=== PATIENT | male | born 1980 | race Caucasian/White ===

== ENCOUNTER 2017-06-09 18:45 | Inpatient (IN) | payer OTHER ==
[2017-06-09 19:02] VITALS: BMI 22.2
--- NOTE | 2017-06-09 19:15 | HP ---
CIWA Score - CIWA Score Nausea/Vomitin-Mild Nausea/No Vomiting Muscle Tremors: 4-Moderate,w/Arms Extend Anxiety: 4-Mod. Anxious/Guarded Agitation: 4-Moderately Restless Paroxysmal Sweats: 1-Minimal Palms Moist Orientation: 1-Uncertain about Date Tacttile Disturbances: 0-None Auditory Disturbances: 0-None Visual Disturbances: 0-None Headache: 1-Very Mild CIWA-Ar Total Score: 16 Admission ROS [facility] - HPI Chief Complaint: WITHDRAWAL SX Allergies/Adverse Reactions: Allergies Allergy/AdvReac Type Severity Reaction Status Date / Time Penicillins Allergy Severe Itching Verified 06/09/17 19:08 History of Present Illness: 36 YEARS OLD MALE WITH LONG HISTORY OF ALCOHOL NICOTINE DEPENDENCE, HAS HEPATOMEGALY AND HEPATIC STEATOSIS TREATED AT [facility] X 1 DAY, DISCHARGED TO [facility] FOR ALCOHOL DETOX, LATEST DETOX WAS IN [place] X 6 DAYS ABOUT A MONTH AGO. REPORTS HAS DEPRESSION IS ADMITTED TO DETOX Exam Limitations: No Limitations - Ebola screening Have you traveled outside of the country in the last 21 days: No Have you had contact with anyone from an Ebola affected area: No Have you been sick,other than usual withdrawal symptoms: No Do you have a fever: No - Review of Systems Constitutional: Loss of Appetite, Changes in sleep, Unintentional Wgt. Loss, Unexplained wgt Loss EENT: reports: Dental Problems (MULTIPLE TEETH MISSING) Respiratory: reports: SOB with Exertion Cardiac: reports: No Symptoms Reported GI: reports: Nausea, Poor Appetite, Poor Fluid Intake, Abdominal cramping : reports: No Symptoms Reported Musculoskeletal: reports: Back Pain, Joint Pain, Muscle Pain, Neck Pain Integumentary: reports: No Symptoms Reported Neuro: reports: Tremors Endocrine: reports: No Symptoms Reported Hematology: reports: No Symptoms Reported Psychiatric: reports: Judgement Intact, Anxious, Depressed Other Systems: Reviewed and Negative Patient History - Patient Medical History Hx Anemia: No Hx Asthma: No Hx Chronic Obstructive Pulmonary Disease (COPD): Yes Hx Cancer: No Hx Cardiac Disorders: No Hx Congestive Heart Failure: No Hx Hypertension: No Hx Hypercholesterolemia: No Hx Pacemaker: No HX Cerebrovascular Accident: No Hx Seizures: No Hx Dementia: No Hx Diabetes: No Hx Gastrointestinal Disorders: No Hx Liver Disease: Yes Hx Genitourinary Disorders: No Hx Sexually Transmitted Disorders: No Hx Renal Disease (ESRD): No Hx Thyroid Disease: No Hx Human Immunodeficiency Virus (HIV): No Hx Hepatitis C: No Hx Depression: Yes Hx Suicide Attempt: No Hx Bipolar Disorder: No Hx Schizophrenia: No - Patient Surgical History Past Surgical History: Yes Hx Neurologic Surgery: No Hx Cataract Extraction: No Hx Cardiac Surgery: No Hx Lung Surgery: No Hx Breast Surgery: No Hx Breast Biopsy: No Hx Abdominal Surgery: Yes (LEFT INGUINAL HERNIA REPAIRED 2012) Hx Appendectomy: No Hx Cholecystectomy: No Hx Genitourinary Surgery: No Hx Orthopedic Surgery: No Anesthesia Reaction: No - PPD History Previous Implant?: Yes Documented Results: Negative w/o proof Implanted On Prior [facility] Admission?: No PPD to be Administered?: Yes - Smoking Cessation Smoking history: Current every day smoker Have you smoked in the past 12 months: Yes Aproximately how many cigarettes per day: 20 Cigars Per Day: 0 Hx Chewing Tobacco Use: No Initiated information on smoking cessation: Yes 'Breaking Loose' booklet given: 06/09/17 - Substance & Tx. History Hx Alcohol Use: Yes Hx Substance Use: No Substance Use Type: Alcohol Hx Substance Use Treatment: Yes (03/2017) - Substances Abused Alcohol Route: Oral Frequency: Daily Amount used: [id number], 2 PINTS VOLKA Age of first use: 16 Date of Last Use: 06/07/17 Family Disease History - Family Disease History Family Disease History: Heart Disease: Father (), Other: Father Admission Physical Exam BHS - Vital Signs Vital Signs: Vital Signs - 24 hr 06/09/17 18:58 Temperature 98.5 F Pulse Rate 110 H Respiratory 18 Rate Blood Pressure 112/77 - Physical General Appearance: Yes: Appropriately Dressed, Moderate Distress, Thin, Tremorous, Irritable, Sweating, Anxious HEENTM: Yes: Hearing grossly Normal, Normal ENT Inspection, Normocephalic, Normal Voice Respiratory: Yes: Chest Non-Tender, No Respiratory Distress, No Accessory Muscle Use, Rhonchi (LEFT) Neck: Yes: Supple, Trachea in good position Breast: Yes: Breasts Symetrical Cardiology: Yes: Regular Rhythm, S1, S2, Tachycardia Abdominal: Yes: Non Tender, Soft, Increased Bowel Sounds Genitourinary: Yes: Within Normal Limits Back: Yes: Normal Inspection Musculoskeletal: Yes: full range of Motion, Gait Steady, Muscle Pain (SHOULDERS) Extremities: Yes: Normal Range of Motion, Non-Tender, Tremors, Other (IV DELFINO ON LEFT ARM FROM [facility]) Neurological: Yes: Alert, Motor Strength 5/5, Normal Response, Depressed Affect Integumentary: Yes: Warm Lymphatic: Yes: Within Normal Limits - Diagnostic (1) Alcohol dependence with uncomplicated withdrawal Current Visit: Yes Status: Acute (2) COPD (chronic obstructive pulmonary disease) Current Visit: Yes Status: Chronic Qualifiers: COPD type: emphysema Emphysema type: unilateral Qualified Code(s ): J43.0 - Unilateral pulmonary emphysema [MacLeod's syndrome] (3) Hepatomegaly Current Visit: Yes Status: Chronic (4) Hepatic steatosis Current Visit: Yes Status: Resolved Comment: TREATED AT [facility] RELEASED TODAY TO [facility] FOR ALCOHOL DETOX Cleared for Admission [facility] - Detox or Rehab [facility] Level of Care: Medically Managed Detox Regimen/Protocol: Librium [facility] Breath Alcohol Content Breath Alcohol Content: 0 Urine Drug Screen - Results Drug Screen Negative: No Urine Drug Screen Results: BZO-Benzodiazepines
[2017-06-09] MEDS ORDERED: MAGNESIUM CITRATE 300 ML BOTTLE PO PRN (19:31)
[2017-06-09] MEDS ORDERED: LOPERAMIDE HCL 2 MG CAPSULE PO PRN (19:31)
[2017-06-09] MEDS ORDERED: MENTHOL/PHENOL 1 EACH UD MM PRN (19:31)
[2017-06-09] MEDS ORDERED: P-EPHED 60MG/TRIPROLIDI 2.5MG TABLET PO PRN (19:31)
[2017-06-09] MEDS ORDERED: MAGNESIUM HYDROX 2400MG/30ML ORAL SUSPENSION 30 ML CUP PO PRN (19:31)
[2017-06-09] MEDS ORDERED: chlordiazePOXIDE HCL 25 MG CAPSULE PO PRN (19:31)
[2017-06-09] MEDS ORDERED: chlordiazePOXIDE HCL 25 MG CAPSULE PO ONE (19:31)
[2017-06-09] MEDS ORDERED: MAG HYDROX/AL HYDROX/SIMETH 30 ML UNIT-DOSE CUP PO PRN (19:31)
[2017-06-09] MEDS ORDERED: ALBUTEROL SO4 6.7 GM HFA INHALER IH PRN (19:33)
[2017-06-09] MEDS: ACETAMINOPHEN 325 MG TABLET (FP) PO PRN (20:07)
[2017-06-09] MEDS: guaiFENesin/D-METHORPHAN HB 10 ML UNIT-DOSE CUPS PO PRN (20:08)
[2017-06-09 20:16] LABS: URINE APPEARANCE CLEAR; URINE BILIRUBIN NEGATIVE (NEGATIVE); URINE BLOOD NEGATIVE (NEGATIVE); URINE COLOR YELLOW; URINE GLUCOSE (UA) NEGATIVE (NEGATIVE); URINE KETONE NEGATIVE (NEGATIVE); URINE LEUK ESTERASE NEGATIVE (NEGATIVE); URINE NITRITE NEGATIVE (NEGATIVE); URINE PROTEIN NEGATIVE (NEGATIVE); URINE UROBILINOGEN NEGATIVE mg/dL (0.2-1.0)
[2017-06-09] MEDS: chlordiazePOXIDE HCL 25 MG CAPSULE PO SCH (23:04)
[2017-06-09] MEDS: THIAMINE HCL 100 MG TABLET (FP) PO SCH (23:05)
[2017-06-10] MEDS: chlordiazePOXIDE HCL 25 MG CAPSULE PO SCH ×4 (05:17→22:25)
[2017-06-10] MEDS: ACETAMINOPHEN 325 MG TABLET (FP) PO PRN (05:18)
[2017-06-10] MEDS: guaiFENesin/D-METHORPHAN HB 10 ML UNIT-DOSE CUPS PO PRN ×2 (05:20→22:25)
[2017-06-10 09:43] LABS: MCH 31.8 pg (25.7-33.7); MCHC 32.7 g/dl (32.0-35.9); MEAN CELL VOLUME 97.3 fl (80-96); MEAN PLT VOLUME 8.9 fl (7.5-11.1); PLATELET COUNT 272 K/MM3 (134-434); RDW 17.7 % (11.9-15.9); WHITE BLOOD COUNT 13.4 K/mm3 (4.0-10.0)
[2017-06-10 09:51] LABS: ALBUMIN 1.9 g/dl (3.4-5.0); ANION GAP 8 (8-16); CO2 26 mmol/L (21-32); GLUCOSE,RANDOM 100 mg/dL (74-106)
[2017-06-10 09:56] LABS: ALK PHOS 314 U/L (45-117); CALCIUM 8.3 mg/dL (8.5-10.1); CREATININE 0.6 mg/dL (0.7-1.3); SGOT/AST 346 U/L (15-37); SGPT/ALT 155 U/L (12-78); TOT PROT 5.6 g/dl (6.4-8.2)
[2017-06-10] MEDS: PRENATAL VITAMINS W/ FOLIC ACID TABLET (FP) PO SCH (10:24)
[2017-06-10] MEDS: NICOTINE 21 MG/24 HOURS TOPICAL PATCH TD SCH (10:25)
[2017-06-10] MEDS: hydrOXYzine PAMOATE 50 MG CAPSULE (FP) PO PRN (10:26)
--- NOTE | 2017-06-10 11:35 | PN ---
S CIWA - CIWA Score Nausea/Vomitin-No Nausea/No Vomiting Muscle Tremors: 4-Moderate,w/Arms Extend Anxiety: 3 Agitation: 4-Moderately Restless Paroxysmal Sweats: 3 Orientation: 0-Oriented Tacttile Disturbances: 0-None Auditory Disturbances: 0-None Visual Disturbances: 0-None Headache: 0-None Present CIWA-Ar Total Score: 14 BHS Progress Note (SOAP) Subjective: sweats irritable agitation interrupted sleep body aches Objective: 06/10/17 11:33 Vital Signs Temperature 97.9 F 06/10/17 10:35 Pulse Rate 129 H 06/10/17 10:35 Respiratory Rate 18 06/10/17 10:35 Blood Pressure 112/67 06/10/17 10:35 O2 Sat by Pulse Oximetry (%) Laboratory Tests 06/09/17 06/10/17 06/10/17 20:02 08:00 08:00 WBC 13.4 H RBC 3.84 L Hgb 12.2 Hct 37.3 MCV 97.3 H MCH 31.8 MCHC 32.7 RDW 17.7 H Plt Count 272 MPV 8.9 Sodium 141 Potassium 4.6 Chloride 107 Carbon Dioxide 26 Anion Gap 8 BUN 8 Creatinine 0.6 L Creat Clearance w eGFR > 60 Random Glucose 100 Calcium 8.3 L Total Bilirubin 3.0 H AST 346 H ALT 155 H Alkaline Phosphatase 314 H Total Protein 5.6 L Albumin 1.9 L Urine Color Yellow Urine Appearance Clear Urine pH 8.0 Ur Specific [place] 1.015 Urine Protein Negative Urine Glucose (UA) Negative Urine Ketones Negative Urine Blood Negative Urine Nitrite Negative Urine Bilirubin Negative Urine Urobilinogen Negative Ur Leukocyte Esterase Negative elevated ast/alt; tylenol d/c labs repeated awake/alert ambulating no acute distress Assessment: 06/10/17 11:34 withdrawal sx Plan: continue detox increase fluids clonidinen 0.1mg x one
[2017-06-10] MEDS ORDERED: cloNIDine HCL 0.1 MG TABLET PO ONE (12:30)
--- NOTE | 2017-06-10 12:55 | EKG ---
Test Reason : Blood Pressure : / mmHG Vent. Rate : 107 BPM Atrial Rate : 107 BPM P-R Int : 130 ms QRS Dur : 086 ms QT Int : 346 ms P-R-T Axes : 066 071 044 degrees QTc Int : 461 ms SINUS TACHYCARDIA OTHERWISE NORMAL ECG NO PREVIOUS ECGS AVAILABLE Confirmed by MD OMAIRA, YING ([id number]) on 06/10/2017 12:55:18 PM Referred By: Confirmed By:YING CASTANO MD
--- NOTE | 2017-06-10 16:09 | CONSULT ---
[facility] Psychiatric Consult - Data Date of interview: 06/10/17 Admission source: [facility] Identifying data: First admission to [facility] for this 36 y/o male seeking detox treatment on for alcohol dependence.Patient is single,a father of two,homeless,unemployed and supported on food stamps. Substance Abuse History: Confirmed by patient in this interview. Smoking Cessation. Smoking history: Current every day smoker. Have you smoked in the past 12 months: Yes. Aproximately how many cigarettes per day: 20. Cigars Per Day: 0. Hx Chewing Tobacco Use: No. Initiated information on smoking cessation : Yes. 'Breaking Loose' booklet given: 06/09/17. - Substance & Tx. History. Hx Alcohol Use: Yes. Hx Substance Use: No. Substance Use Type: Alcohol. Hx Substance Use Treatment: Yes (03/2017). - Substances Abused. Alcohol. Route : Oral. Frequency: Daily. Amount used: [id number], 2 PINTS VOLKA. Age of first use: 16. Date of Last Use: 06/07/17 Medical History: Noted report of COPD,hepatic steatosis and a history of left inguinal herniorraphy (2012). Psychiatric History: Patient denies. Physical/Sexual Abuse/Trauma History: Patient denies. Additional Comment: Urine Drug Screen Results: BZO-Benzodiazepines.Noted. Mental Status Exam - Mental Status Exam Alert and Oriented to: Time, Place, Person Cognitive Function: Good Patient Appearance: Well Groomed Mood: Hopeful, Euthymic Affect: Appropriate, Normal Range Patient Behavior: Appropriate, Cooperative Speech Pattern: Clear (bilingual) Voice Loudness: Normal Thought Process: Intact, Goal Oriented Thought Disorder: Not Present Hallucinations: Denies Suicidal Ideation: Denies Homicidal Ideation: Denies Insight/Judgement: Poor Sleep: Poorly, Difficulty falling asleep Appetite: Good Muscle strength/Tone: Normal Gait/Station: Normal Psychiatric Findings - Problem List ([place] 1, 2,3) (1) Alcohol dependence with uncomplicated withdrawal Current Visit: Yes Status: Acute (2) Nicotine dependence Current Visit: Yes Status: Acute (3) COPD (chronic obstructive pulmonary disease) Current Visit: Yes Status: Chronic Qualifiers: COPD type: emphysema Emphysema type: unilateral Qualified Code(s ): J43.0 - Unilateral pulmonary emphysema [MacLeod's syndrome] (4) Hepatomegaly Current Visit: Yes Status: Chronic (5) Hepatic steatosis Current Visit: Yes Status: Resolved Comment: TREATED AT [facility] RELEASED TODAY TO [facility] FOR ALCOHOL DETOX (6) Insomnia Current Visit: Yes Status: Acute - Initial Treatment Plan Initial Treatment Plan: Psychoeducation done in this session.Detoxification.Ambien 10 mg po hs prn (for insomnia).Sleep hygiene principles are also discussed with the patient.[facility].Mr Fox expresses agreement with this careplan.Observation.
[2017-06-10] MEDS: THIAMINE HCL 100 MG TABLET (FP) PO SCH (22:24)
[2017-06-10] MEDS: diphenhydrAMINE HCL 50 MG CAPSULE PO PRN (22:25)
[2017-06-11] MEDS: guaiFENesin/D-METHORPHAN HB 10 ML UNIT-DOSE CUPS PO PRN ×2 (05:46→17:26)
[2017-06-11] MEDS: chlordiazePOXIDE HCL 25 MG CAPSULE PO SCH ×3 (05:46→17:24)
[2017-06-11] MEDS: PRENATAL VITAMINS W/ FOLIC ACID TABLET (FP) PO SCH (10:43)
[2017-06-11] MEDS: NICOTINE 21 MG/24 HOURS TOPICAL PATCH TD SCH (10:44)
[2017-06-11 10:50] LABS: MCHC 32.4 g/dl (32.0-35.9); MEAN CELL VOLUME 98.9 fl (80-96); MEAN PLT VOLUME 8.7 fl (7.5-11.1); PLATELET COUNT 273 K/MM3 (134-434)
[2017-06-11 10:58] LABS: ALBUMIN 1.8 g/dl (3.4-5.0); ALK PHOS 231 U/L (45-117); ANION GAP 6 (8-16); BILIRUBIN,TOTAL 1.6 mg/dL (0.2-1.0); CALCIUM 7.9 mg/dL (8.5-10.1); CO2 28 mmol/L (21-32); CREATININE 0.7 mg/dL (0.7-1.3); GLUCOSE,RANDOM 103 mg/dL (74-106); SGOT/AST 238 U/L (15-37); SGPT/ALT 124 U/L (12-78); TOT PROT 4.8 g/dl (6.4-8.2)
[2017-06-11] MEDS: hydrOXYzine PAMOATE 50 MG CAPSULE (FP) PO PRN (13:28)
[2017-06-11 13:43] LABS: PLATELET COMMENT2 NO CLOTTING DETECTED; PLATELET ESTIMATE ADEQUATE (NORMAL); TOTAL CELLS COUNTED 100
[2017-06-11 13:44] LABS: METAMYELOCYTE 3 % (0-2); NUCLEATED RED BLOOD CELL 1 % (0-0); SMUDGE CELLS FEW
--- NOTE | 2017-06-11 15:18 | PN ---
S CIWA - CIWA Score Nausea/Vomitin Muscle Tremors: 3 Anxiety: 3 Agitation: 2 Paroxysmal Sweats: 1-Minimal Palms Moist Orientation: 0-Oriented Tacttile Disturbances: 1-Very Mild Itch/Numbness Auditory Disturbances: 1-Very Mild Visual Disturbances: 1-Very Mild Sensitivity Headache: 2-Mild CIWA-Ar Total Score: 17 BHS Progress Note (SOAP) Subjective: ALERT IRRITABLE,ANXIOUS,INTERRUPTED SLEEP,TREMOR Objective: 06/11/17 15:16 Vital Signs Temperature 98.2 F 06/11/17 14:56 Pulse Rate 114 H 06/11/17 14:56 Respiratory Rate 18 06/11/17 14:56 Blood Pressure 125/59 06/11/17 14:56 O2 Sat by Pulse Oximetry (%) Laboratory Last Values WBC 15.0 K/mm3 (4.0-10.0) H 06/11/17 07:50 RBC 3.40 M/mm3 (4.00-5.60) L 06/11/17 07:50 Hgb 10.9 GM/dL (11.7-16.9) L D 06/11/17 07:50 Hct 33.6 % (35.4-49) L 06/11/17 07:50 MCV 98.9 fl (80-96) H 06/11/17 07:50 MCH 32.0 pg (25.7-33.7) 06/11/17 07:50 MCHC 32.4 g/dl (32.0-35.9) 06/11/17 07:50 RDW 18.0 % (11.9-15.9) H 06/11/17 07:50 Plt Count 273 K/MM3 (134-434) 06/11/17 07:50 MPV 8.7 fl (7.5-11.1) 06/11/17 07:50 Total Counted 100 06/11/17 07:50 Neutrophils % Y 06/11/17 07:50 Neutrophils % (Manual) 75 % (42.8-82.8) 06/11/17 07:50 Band Neuts % (Manual) 6 % (0-10) 06/11/17 07:50 Lymphocytes % Y 06/11/17 07:50 Lymphocytes % (Manual) 9 % (8-40) 06/11/17 07:50 Monocytes % (Manual) 6 % (3.8-10.2) 06/11/17 07:50 Eosinophils % (Manual) 1 % (0-4.5) 06/11/17 07:50 Nucleated RBC % 1 % (0-0) H 06/11/17 07:50 Smudge Cells Few 06/11/17 07:50 Platelet Estimate Adequate (NORMAL) 06/11/17 07:50 Platelet Comment No clumping noted 06/11/17 07:50 Platelet Comment No clotting detected 06/11/17 07:50 Sodium 142 mmol/L (136-145) 06/11/17 07:50 Potassium 4.6 mmol/L (3.5-5.1) 06/11/17 07:50 Chloride 108 mmol/L (98-107) H 06/11/17 07:50 Carbon Dioxide 28 mmol/L (21-32) 06/11/17 07:50 Anion Gap 6 (8-16) L 06/11/17 07:50 BUN 10 mg/dL (7-18) D 06/11/17 07:50 Creatinine 0.7 mg/dL (0.7-1.3) 06/11/17 07:50 Creat Clearance w eGFR > 60 (>60) 06/11/17 07:50 Random Glucose 103 mg/dL (74-106) 06/11/17 07:50 Calcium 7.9 mg/dL (8.5-10.1) L 06/11/17 07:50 Total Bilirubin 1.6 mg/dL (0.2-1.0) H D 06/11/17 07:50 AST 238 U/L (15-37) H D 06/11/17 07:50 ALT 124 U/L (12-78) H 06/11/17 07:50 Alkaline Phosphatase 231 U/L (45-117) H D 06/11/17 07:50 Total Protein 4.8 g/dl (6.4-8.2) L 06/11/17 07:50 Albumin 1.8 g/dl (3.4-5.0) L 06/11/17 07:50 Urine Color Yellow 06/09/17 20:02 Urine Appearance Clear 06/09/17 20:02 Urine pH 8.0 (5.0-8.0) 06/09/17 20:02 Ur Specific [place] 1.015 (1.005-1.025) 06/09/17 20:02 Urine Protein Negative (NEGATIVE) 06/09/17 20:02 Urine Glucose (UA) Negative (NEGATIVE) 06/09/17 20:02 Urine Ketones Negative (NEGATIVE) 06/09/17 20:02 Urine Blood Negative (NEGATIVE) 06/09/17 20:02 Urine Nitrite Negative (NEGATIVE) 06/09/17 20:02 Urine Bilirubin Negative (NEGATIVE) 06/09/17 20:02 Urine Urobilinogen Negative mg/dL (0.2-1.0) 06/09/17 20:02 Ur Leukocyte Esterase Negative (NEGATIVE) 06/09/17 20:02 RPR Titer Nonreactive (NONREACTIVE) 06/10/17 08:00 Assessment: 06/11/17 15:17 WITHDRAWAL SYMPTOM Plan: CONTINUE DETOX,ENCOURAGE ORAL FLUID,CBC,CMP,INR IN AM
[2017-06-11] MEDS: CYCLOBENZAPRINE HCL 10 MG TABLET (FP) PO PRN ×2 (17:26→22:11)
[2017-06-11] MEDS: diphenhydrAMINE HCL 50 MG CAPSULE PO PRN (22:11)
[2017-06-11] MEDS: THIAMINE HCL 100 MG TABLET (FP) PO SCH (22:11)
[2017-06-11] MEDS: chlordiazePOXIDE 5 MG CAPSULE PO SCH (22:11)
[2017-06-12] MEDS: chlordiazePOXIDE 5 MG CAPSULE PO SCH ×3 (05:13→17:22)
[2017-06-12] MEDS: CYCLOBENZAPRINE HCL 10 MG TABLET (FP) PO PRN ×4 (05:16→22:16)
[2017-06-12] MEDS: guaiFENesin/D-METHORPHAN HB 10 ML UNIT-DOSE CUPS PO PRN ×2 (05:16→17:22)
[2017-06-12 10:04] LABS: MEAN PLT VOLUME 8.5 fl (7.5-11.1)
[2017-06-12 10:09] LABS: ALBUMIN 2.1 g/dl (3.4-5.0); ANION GAP 4 (8-16); CALCIUM 8.2 mg/dL (8.5-10.1); CO2 28 mmol/L (21-32); GLUCOSE,RANDOM 96 mg/dL (74-106); SGOT/AST 208 U/L (15-37); SGPT/ALT 131 U/L (12-78)
[2017-06-12 10:10] LABS: INR 0.83 (0.82-1.09); PROTHROMBIN TIME (PATIENT) 9.1 SEC (9.98-11.88)
[2017-06-12 10:11] LABS: MCH 32.2 pg (25.7-33.7); MCHC 32.3 g/dl (32.0-35.9); MEAN CELL VOLUME 99.7 fl (80-96); PLATELET COUNT 310 K/MM3 (134-434); RDW 18.4 % (11.9-15.9); WHITE BLOOD COUNT 18.3 K/mm3 (4.0-10.0)
[2017-06-12 10:11] LABS: ALK PHOS 212 U/L (45-117); BILIRUBIN,TOTAL 1.2 mg/dL (0.2-1.0); CREATININE 0.6 mg/dL (0.7-1.3); TOT PROT 5.7 g/dl (6.4-8.2)
[2017-06-12] MEDS: PRENATAL VITAMINS W/ FOLIC ACID TABLET (FP) PO SCH (10:19)
[2017-06-12] MEDS: LEVOFLOXACIN 500 MG TABLET (FP) PO SCH (10:19)
[2017-06-12] MEDS: NICOTINE 21 MG/24 HOURS TOPICAL PATCH TD SCH (10:21)
[2017-06-12] MEDS: hydrOXYzine PAMOATE 50 MG CAPSULE (FP) PO PRN (12:27)
--- NOTE | 2017-06-12 13:54 | PN ---
S Progress Note (SOAP) Subjective: ALERT,IRRITABLE,SORE THROAT,COUGHING FOR 2 OR 3 DAYS,TREMOR Objective: 06/12/17 13:50 Vital Signs Temperature 97.9 F 06/12/17 10:00 Pulse Rate 121 H 06/12/17 10:00 Respiratory Rate 18 06/12/17 10:00 Blood Pressure 109/78 06/12/17 10:00 O2 Sat by Pulse Oximetry (%) Laboratory Last Values WBC 18.3 K/mm3 (4.0-10.0) H 06/12/17 09:00 RBC 3.68 M/mm3 (4.00-5.60) L 06/12/17 09:00 Hgb 11.8 GM/dL (11.7-16.9) 06/12/17 09:00 Hct 36.7 % (35.4-49) 06/12/17 09:00 MCV 99.7 fl (80-96) H 06/12/17 09:00 MCH 32.2 pg (25.7-33.7) 06/12/17 09:00 MCHC 32.3 g/dl (32.0-35.9) 06/12/17 09:00 RDW 18.4 % (11.9-15.9) H 06/12/17 09:00 Plt Count 310 K/MM3 (134-434) 06/12/17 09:00 MPV 8.5 fl (7.5-11.1) 06/12/17 09:00 Total Counted 100 06/11/17 07:50 Neutrophils % Y 06/12/17 09:00 Neutrophils % (Manual) 75 % (42.8-82.8) 06/11/17 07:50 Band Neuts % (Manual) 6 % (0-10) 06/11/17 07:50 Lymphocytes % Y 06/12/17 09:00 Lymphocytes % (Manual) 9 % (8-40) 06/11/17 07:50 Monocytes % (Manual) 6 % (3.8-10.2) 06/11/17 07:50 Eosinophils % (Manual) 1 % (0-4.5) 06/11/17 07:50 Nucleated RBC % 1 % (0-0) H 06/11/17 07:50 Smudge Cells Few 06/11/17 07:50 Platelet Estimate Adequate (NORMAL) 06/11/17 07:50 Platelet Comment No clumping noted 06/11/17 07:50 Platelet Comment No clotting detected 06/11/17 07:50 INR 0.83 (0.82-1.09) L 06/12/17 07:50 Sodium 141 mmol/L (136-145) 06/12/17 07:50 Potassium 4.5 mmol/L (3.5-5.1) 06/12/17 07:50 Chloride 109 mmol/L (98-107) H 06/12/17 07:50 Carbon Dioxide 28 mmol/L (21-32) 06/12/17 07:50 Anion Gap 4 (8-16) L 06/12/17 07:50 BUN 8 mg/dL (7-18) 06/12/17 07:50 Creatinine 0.6 mg/dL (0.7-1.3) L 06/12/17 07:50 Creat Clearance w eGFR > 60 (>60) 06/12/17 07:50 Random Glucose 96 mg/dL (74-106) 06/12/17 07:50 Calcium 8.2 mg/dL (8.5-10.1) L 06/12/17 07:50 Total Bilirubin 1.2 mg/dL (0.2-1.0) H D 06/12/17 07:50 AST 208 U/L (15-37) H 06/12/17 07:50 ALT 131 U/L (12-78) H 06/12/17 07:50 Alkaline Phosphatase 212 U/L (45-117) H 06/12/17 07:50 Total Protein 5.7 g/dl (6.4-8.2) L 06/12/17 07:50 Albumin 2.1 g/dl (3.4-5.0) L 06/12/17 07:50 Urine Color Yellow 06/09/17 20:02 Urine Appearance Clear 06/09/17 20:02 Urine pH 8.0 (5.0-8.0) 06/09/17 20:02 Ur Specific [place] 1.015 (1.005-1.025) 06/09/17 20:02 Urine Protein Negative (NEGATIVE) 06/09/17 20:02 Urine Glucose (UA) Negative (NEGATIVE) 06/09/17 20:02 Urine Ketones Negative (NEGATIVE) 06/09/17 20:02 Urine Blood Negative (NEGATIVE) 06/09/17 20:02 Urine Nitrite Negative (NEGATIVE) 06/09/17 20:02 Urine Bilirubin Negative (NEGATIVE) 06/09/17 20:02 Urine Urobilinogen Negative mg/dL (0.2-1.0) 06/09/17 20:02 Ur Leukocyte Esterase Negative (NEGATIVE) 06/09/17 20:02 RPR Titer Nonreactive (NONREACTIVE) 06/10/17 08:00 Assessment: 06/12/17 13:51 WITHDRAWAL SYMPTOM LUNG CLEAR,PHARYNX INJECTED, Plan: CONTINUE DETOX,LEVAQUIN 500 MGS PO DAILY FOR 7DAYS FOR URI AND BRONCHITIS FLUID
[2017-06-12 14:15] LABS: PLATELET ESTIMATE ADEQUATE (NORMAL)
[2017-06-12 14:16] LABS: PLATELET COMMENT2 NO CLOTTING DETECTED; TOTAL CELLS COUNTED 100
[2017-06-12] MEDS: diphenhydrAMINE HCL 50 MG CAPSULE PO PRN (22:15)
[2017-06-12] MEDS: THIAMINE HCL 100 MG TABLET (FP) PO SCH (22:16)
[2017-06-12] MEDS: chlordiazePOXIDE HCL 10 MG CAPSULE PO SCH (22:16)
[2017-06-13] MEDS: chlordiazePOXIDE HCL 10 MG CAPSULE PO SCH ×3 (05:51→17:17)
[2017-06-13] MEDS: guaiFENesin/D-METHORPHAN HB 10 ML UNIT-DOSE CUPS PO PRN (05:54)
[2017-06-13] MEDS: CYCLOBENZAPRINE HCL 10 MG TABLET (FP) PO PRN ×3 (05:54→22:31)
[2017-06-13] MEDS ORDERED: diphenhydrAMINE HCL 50 MG CAPSULE PO ONE (09:15)
--- NOTE | 2017-06-13 09:15 | DS ---
[facility] Detox Discharge Summary Admission Date: 06/09/17 Discharge Date: 06/13/17 - History Present History: Alcohol Dependence - Physical Exam Results Vital Signs: Vital Signs Temperature 98.2 F 06/13/17 06:32 Pulse Rate 96 H 06/13/17 06:32 Respiratory Rate 20 06/13/17 06:32 Blood Pressure 130/80 06/13/17 06:32 O2 Sat by Pulse Oximetry (%) - Treatment Hospital Course: Detox Protocol Followed, Detoxed Safely, Responded well, Discharged Condition Good, Rehab Referral Accepted - Medication Discharge Medications: Ambulatory Orders Levofloxacin [Levaquin -] 500 mg PO DAILY #7 tablet 06/12/17 - Diagnosis (1) Alcohol dependence with uncomplicated withdrawal Current Visit: Yes Status: Chronic (2) COPD (chronic obstructive pulmonary disease) Current Visit: Yes Status: Chronic Qualifiers: COPD type: emphysema Emphysema type: unilateral Qualified Code(s ): J43.0 - Unilateral pulmonary emphysema [MacLeod's syndrome] (3) Hepatomegaly Current Visit: Yes Status: Chronic (4) Hepatic steatosis Current Visit: Yes Status: Resolved (5) Rash and nonspecific skin eruption Current Visit: Yes Status: Acute - AMA Did Patient Leave Against Medical Advice: No (outpatient rehab)
[2017-06-13] MEDS ORDERED: HYDROCORTISONE 2.5% LOTION - 1 BOTTLE TP ONE (09:30)
[2017-06-13] MEDS: LEVOFLOXACIN 500 MG TABLET (FP) PO SCH (09:48)
[2017-06-13] MEDS: PRENATAL VITAMINS W/ FOLIC ACID TABLET (FP) PO SCH (09:48)
[2017-06-13] MEDS: NICOTINE 21 MG/24 HOURS TOPICAL PATCH TD SCH (09:49)
--- NOTE | 2017-06-13 10:21 | PN ---
S Progress Note Note: ALERT,ITCHING,TREMOR,RASH IN THE BODY AND EXTREMITY STATED ON LEVAQUIN 500 MGS PO DAILY POSSIBLE ALLERGIC TO LEVAQUIN WILL D/C LEVAQUIN BENADRYL 25 MGS PO Q 6 HRS PRN HYDROCORTISONE OINTMENT 1% BID HILD DISCHAGE HYDRATION FLUID CLOSE OBSERVATION CHEST XRAY TODAY REEVALUATION FOR REHAB,,PATIENT CHANGED HIS MIND WOULD LIKE TO GO TO REHAB
[2017-06-13] MEDS: NICOTINE POLACRILEX 4 MG GUM BUC PRN (13:19)
--- NOTE | 2017-06-13 15:23 | PN ---
[facility] Progress Note Note: chest x ray no active disease clindamycin 300 mgs po now then tid for 7 days, benadryl 25 mgs po 6 hrs prn for itching close monitoring
[2017-06-13] MEDS ORDERED: CLINDAMYCIN HCL 150 MG CAPSULE (FP) PO ONE (16:00)
[2017-06-13] MEDS: diphenhydrAMINE HCL 25 MG CAPSULE (FP) PO PRN (16:06)
[2017-06-13] MEDS: THIAMINE HCL 100 MG TABLET (FP) PO SCH (22:31)
[2017-06-13] MEDS: diphenhydrAMINE HCL 50 MG CAPSULE PO PRN (22:31)
[2017-06-13] MEDS: CLINDAMYCIN HCL 150 MG CAPSULE (FP) PO SCH (22:32)
[2017-06-14] MEDS: guaiFENesin/D-METHORPHAN HB 10 ML UNIT-DOSE CUPS PO PRN (05:59)
[2017-06-14] MEDS: CYCLOBENZAPRINE HCL 10 MG TABLET (FP) PO PRN (06:00)
[2017-06-14] MEDS: diphenhydrAMINE HCL 25 MG CAPSULE (FP) PO PRN (06:00)
[2017-06-14] MEDS: CLINDAMYCIN HCL 150 MG CAPSULE (FP) PO SCH ×2 (06:00→13:30)
[2017-06-14 10:14] LABS: MCH 32.8 pg (25.7-33.7); MCHC 32.5 g/dl (32.0-35.9); MEAN CELL VOLUME 100.8 fl (80-96); MEAN PLT VOLUME 8.3 fl (7.5-11.1); PLATELET COUNT 383 K/MM3 (134-434); RDW 18.2 % (11.9-15.9); WHITE BLOOD COUNT 14.8 K/mm3 (4.0-10.0)
[2017-06-14 10:21] LABS: INR 0.88 (0.82-1.09); PROTHROMBIN TIME (PATIENT) 9.7 SEC (9.98-11.88)
[2017-06-14] MEDS: NICOTINE 21 MG/24 HOURS TOPICAL PATCH TD SCH (10:32)
[2017-06-14] MEDS: PRENATAL VITAMINS W/ FOLIC ACID TABLET (FP) PO SCH (10:32)
[2017-06-14] MEDS: hydrOXYzine PAMOATE 50 MG CAPSULE (FP) PO PRN (10:34)
[2017-06-14] MEDS: NICOTINE POLACRILEX 4 MG GUM BUC PRN (10:34)
[2017-06-14 10:51] LABS: ALBUMIN 2.4 g/dl (3.4-5.0); ALK PHOS 175 U/L (45-117); ANION GAP 5 (8-16); CALCIUM 8.9 mg/dL (8.5-10.1); CO2 31 mmol/L (21-32); CREATININE 0.7 mg/dL (0.7-1.3); GLUCOSE,RANDOM 95 mg/dL (74-106); SGOT/AST 130 U/L (15-37); SGPT/ALT 114 U/L (12-78); TOT PROT 6.2 g/dl (6.4-8.2)
[2017-06-14] MEDS ORDERED: diphenhydrAMINE HCL 25 MG CAPSULE (FP) PO ONE (11:15)
--- NOTE | 2017-06-14 11:21 | DS ---
[facility] Detox Discharge Summary Admission Date: 06/09/17 Discharge Date: 06/14/17 - History Present History: Alcohol Dependence - Physical Exam Results Vital Signs: Vital Signs Temperature 97 F L 06/14/17 10:36 Pulse Rate 121 H 06/14/17 10:36 Respiratory Rate 18 06/14/17 10:36 Blood Pressure 100/59 06/14/17 10:36 O2 Sat by Pulse Oximetry (%) - Treatment Hospital Course: Detox Protocol Followed, Detoxed Safely, Responded well, Discharged Condition Good, Rehab Referral Accepted - Medication Discharge Medications: Ambulatory Orders Levofloxacin [Levaquin -] 500 mg PO DAILY #7 tablet 06/12/17 Hydrocortisone 1% Cream [Hytone 1% Cream -] 1 applic TP DAILY #1 tube 06/13/17 - Diagnosis (1) Alcohol dependence with uncomplicated withdrawal Current Visit: Yes Status: Chronic (2) COPD (chronic obstructive pulmonary disease) Current Visit: Yes Status: Chronic Qualifiers: COPD type: emphysema Emphysema type: unilateral Qualified Code(s ): J43.0 - Unilateral pulmonary emphysema [MacLeod's syndrome] (3) Hepatomegaly Current Visit: Yes Status: Chronic (4) Hepatic steatosis Current Visit: Yes Status: Resolved (5) Rash and nonspecific skin eruption Current Visit: Yes Status: Acute - AMA Did Patient Leave Against Medical Advice: No
[2017-06-14 14:32] VITALS: BP 114/73; PULSE 124; TEMP 98.2
[2017-06-16] MEDS ORDERED: ERGOCALCIFEROL (VITAMIN D2) 50,000 UNIT CAPSULE (FP) PO SCH (10:00)
== END 2017-06-14 14:20 | disposition other institution (70) | DRG 775 ==
LOC: YASAS 18:45 → Y6N 19:28
PROVIDERS: ADMIT Internal Medicine; ATTEND Internal Medicine
PROC: HZ2ZZZZ Detoxification Services for Substance Abuse Treatment (ICD-10-PCS; principal; 2017-06-14)
DX: F10.230 Alcohol dependence with withdrawal, uncomplicated (principal); F17.210 Nicotine dependence, cigarettes, uncomplicated; F32.9 Major depressive disorder, single episode, unspecified; G47.00 Insomnia, unspecified; J43.0 Unilateral pulmonary emphysema [MacLeod's syndrome]; K76.0 Fatty (change of) liver, not elsewhere classified; R16.0 Hepatomegaly, not elsewhere classified
CPT/HCPCS: 36415; 71010-TC; 80053; 81003; 85025; 85027; 85610; 86593; 93005; 93010

== ENCOUNTER 2017-06-14 14:20 | Inpatient (IN) | payer OTHER ==
[2017-06-14 15:05] VITALS: BMI 24.3
--- NOTE | 2017-06-14 15:11 | HP ---
Psychiatrist Admission - Data Date of interview: 06/14/17 Admission source: [facility] Identifying data: This is the first [facility] inpatient rehabilitation admission for thsi36 year old male who is a single , father of two, he is currently homeless, unemployed and supported on food stamps. Medical History: COPD, hepatic steatosis and left inguinal herniorraphy. Smokes cigarettes 1PPD. Psychiatric History: Patient denies history of psychiatric treatment, reports was seen by a psychiatrist kathy at [facility] treatment ,no medications recommended. He reports he feels anxious and depressed due to his inablity to stop drinking. Physical/Sexual Abuse/Trauma History: Denies history of abuse. Vital Signs: Vital Signs - 24 hr 06/14/17 15:03 Temperature 98 F Pulse Rate 115 H Respiratory 18 Rate Blood Pressure 112/68 Allergies/Adverse Reactions: Allergies Allergy/AdvReac Type Severity Reaction Status Date / Time Penicillins Allergy Severe Itching Verified 06/09/17 19:08 levofloxacin [From Levaquin] Allergy Verified 06/14/17 11:06 Date of last physical exam: 06/09/17 Concur with the findings of this exam: Yes - Substance Abuse/Tx History Hx Alcohol Use: Yes (started at age of 16, daily 2pints of vodka and 12 oz x 6 packs of beer.) Hx Substance Use: No Substance Use Type: Alcohol Hx Substance Use Treatment: Yes - Admission Criteria Previous failed treatment: Yes Poor recovery environment: Yes Comorbidities: No Lacks judgement: Yes Mental Status Exam - Mental Status Exam Alert and Oriented to: Time, Place, Person Cognitive Function: Grossly Intact Patient Appearance: Well Groomed Mood: Anxious Affect: Appropriate, Mood Congruent Patient Behavior: Appropriate, Cooperative Speech Pattern: Clear, Appropriate Voice Loudness: Normal Thought Process: Intact, Goal Oriented Thought Disorder: Not Present Hallucinations: Denies Suicidal Ideation: Denies Homicidal Ideation: Denies Insight/Judgement: Fair Sleep: Fair Appetite: Fair Muscle strength/Tone: Normal Gait/Station: Normal Psychiatric Findings - Problem List ([place] 1, 2,3) (1) Nicotine dependence Current Visit: No Status: Acute (2) Alcohol dependence Current Visit: Yes Status: Acute (3) Alcohol-induced mood disorder Current Visit: Yes Status: Acute - Initial Treatment Plan Initial Treatment Plan: Psychoeducation and support provided, will monitor progress as needed.
[2017-06-14] MEDS ORDERED: hydrOXYzine PAMOATE 50 MG CAPSULE (FP) PO PRN (15:15)
[2017-06-14] MEDS ORDERED: MAGNESIUM HYDROX 2400MG/30ML ORAL SUSPENSION 30 ML CUP PO PRN (15:15)
[2017-06-14] MEDS ORDERED: diphenhydrAMINE HCL 50 MG CAPSULE PO PRN (15:15)
[2017-06-14] MEDS ORDERED: LOPERAMIDE HCL 2 MG CAPSULE PO PRN (15:15)
[2017-06-14] MEDS ORDERED: P-EPHED 60MG/TRIPROLIDI 2.5MG TABLET PO PRN (15:15)
[2017-06-14] MEDS ORDERED: MAGNESIUM CITRATE 300 ML BOTTLE PO PRN (15:15)
[2017-06-14] MEDS ORDERED: MAG HYDROX/AL HYDROX/SIMETH 30 ML UNIT-DOSE CUP PO PRN (15:15)
[2017-06-14] MEDS ORDERED: MENTHOL/PHENOL 1 EACH UD MM PRN (15:15)
--- NOTE | 2017-06-14 16:25 | HP ---
[facility] Rehab Assess/Revision - Admission History Admitted to Rehab from: [facility] Date of Admission to Rehab: 06/14/17 - Vital signs Vital Signs: Vital Signs Period Temp Pulse Resp BP Sys/Ac Pulse Ox Last 24 Hr 98 F 115 18 112/68 - Findings Detox History & Physical reviewed: Yes Concur with findings: Yes Comments/Additional Findings: transferred from detox to rehab admission as per protocol
[2017-06-14] MEDS: diphenhydrAMINE HCL 25 MG CAPSULE (FP) PO PRN ×2 (16:53→23:46)
[2017-06-14] MEDS: HYDROCORTISONE 1% TOPICAL LOTION 118 ML BOTTLE TP PRN (16:54)
[2017-06-14] MEDS: CLINDAMYCIN HCL 150 MG CAPSULE (FP) PO SCH (21:11)
[2017-06-14] MEDS: IBUPROFEN 400 MG TABLET (FP) PO PRN (21:11)
[2017-06-14] MEDS: guaiFENesin/D-METHORPHAN HB 10 ML UNIT-DOSE CUPS PO PRN (21:11)
[2017-06-14] MEDS: THIAMINE HCL 100 MG TABLET (FP) PO SCH (21:12)
[2017-06-15] MEDS: CLINDAMYCIN HCL 150 MG CAPSULE (FP) PO SCH ×3 (06:20→21:07)
[2017-06-15] MEDS: guaiFENesin/D-METHORPHAN HB 10 ML UNIT-DOSE CUPS PO PRN ×3 (06:22→21:09)
[2017-06-15] MEDS: PRENATAL VITAMINS W/ FOLIC ACID TABLET (FP) PO SCH (09:34)
[2017-06-15] MEDS: NICOTINE 21 MG/24 HOURS TOPICAL PATCH TD SCH (09:34)
[2017-06-15] MEDS: IBUPROFEN 400 MG TABLET (FP) PO PRN ×2 (09:36→21:08)
[2017-06-15] MEDS: diphenhydrAMINE HCL 25 MG CAPSULE (FP) PO PRN ×2 (09:36→21:08)
[2017-06-15] MEDS: NICOTINE POLACRILEX 4 MG GUM BUC PRN ×2 (09:36→14:30)
[2017-06-15] MEDS: HYDROCORTISONE 1% TOPICAL LOTION 118 ML BOTTLE TP PRN ×2 (09:37→21:09)
[2017-06-15 13:03] LABS: HIV 1 & 2 AB NEGATIVE; HIV 1 AGp24 NEGATIVE
[2017-06-15] MEDS: ACETAMINOPHEN 325 MG TABLET (FP) PO PRN (14:29)
[2017-06-15] MEDS: THIAMINE HCL 100 MG TABLET (FP) PO SCH (21:07)
[2017-06-16] MEDS: CLINDAMYCIN HCL 150 MG CAPSULE (FP) PO SCH ×3 (06:26→21:19)
[2017-06-16] MEDS: guaiFENesin/D-METHORPHAN HB 10 ML UNIT-DOSE CUPS PO PRN ×2 (06:27→21:20)
[2017-06-16] MEDS: diphenhydrAMINE HCL 25 MG CAPSULE (FP) PO PRN ×2 (06:27→21:19)
[2017-06-16] MEDS: IBUPROFEN 400 MG TABLET (FP) PO PRN ×3 (06:28→21:20)
[2017-06-16] MEDS: PRENATAL VITAMINS W/ FOLIC ACID TABLET (FP) PO SCH (09:45)
[2017-06-16] MEDS: NICOTINE 21 MG/24 HOURS TOPICAL PATCH TD SCH (09:45)
[2017-06-16] MEDS: NICOTINE POLACRILEX 4 MG GUM BUC PRN ×2 (09:46→15:15)
[2017-06-16] MEDS: HYDROCORTISONE 1% TOPICAL LOTION 118 ML BOTTLE TP PRN (09:47)
[2017-06-16] MEDS: THIAMINE HCL 100 MG TABLET (FP) PO SCH (21:19)
[2017-06-17] MEDS: CLINDAMYCIN HCL 150 MG CAPSULE (FP) PO SCH ×3 (06:07→21:07)
[2017-06-17] MEDS: guaiFENesin/D-METHORPHAN HB 10 ML UNIT-DOSE CUPS PO PRN ×2 (06:08→21:09)
[2017-06-17] MEDS: diphenhydrAMINE HCL 25 MG CAPSULE (FP) PO PRN ×2 (06:08→21:08)
[2017-06-17] MEDS: NICOTINE 21 MG/24 HOURS TOPICAL PATCH TD SCH (09:46)
[2017-06-17] MEDS: PRENATAL VITAMINS W/ FOLIC ACID TABLET (FP) PO SCH (09:46)
[2017-06-17] MEDS: NICOTINE POLACRILEX 4 MG GUM BUC PRN (09:48)
[2017-06-17] MEDS: IBUPROFEN 400 MG TABLET (FP) PO PRN ×2 (09:48→21:08)
[2017-06-17] MEDS: THIAMINE HCL 100 MG TABLET (FP) PO SCH (21:07)
[2017-06-18] MEDS: CLINDAMYCIN HCL 150 MG CAPSULE (FP) PO SCH ×3 (06:31→21:08)
[2017-06-18] MEDS: guaiFENesin/D-METHORPHAN HB 10 ML UNIT-DOSE CUPS PO PRN (06:32)
[2017-06-18] MEDS: PRENATAL VITAMINS W/ FOLIC ACID TABLET (FP) PO SCH (09:46)
[2017-06-18] MEDS: NICOTINE 21 MG/24 HOURS TOPICAL PATCH TD SCH (09:46)
[2017-06-18] MEDS: NICOTINE POLACRILEX 4 MG GUM BUC PRN (09:47)
[2017-06-18] MEDS: THIAMINE HCL 100 MG TABLET (FP) PO SCH (21:08)
[2017-06-18] MEDS: IBUPROFEN 400 MG TABLET (FP) PO PRN (21:08)
[2017-06-18] MEDS: diphenhydrAMINE HCL 25 MG CAPSULE (FP) PO PRN (21:09)
[2017-06-19] MEDS: CLINDAMYCIN HCL 150 MG CAPSULE (FP) PO SCH ×3 (06:21→21:06)
[2017-06-19] MEDS: IBUPROFEN 400 MG TABLET (FP) PO PRN ×3 (06:23→21:06)
[2017-06-19] MEDS: guaiFENesin/D-METHORPHAN HB 10 ML UNIT-DOSE CUPS PO PRN (06:23)
[2017-06-19] MEDS: NICOTINE 21 MG/24 HOURS TOPICAL PATCH TD SCH (09:49)
[2017-06-19] MEDS: PRENATAL VITAMINS W/ FOLIC ACID TABLET (FP) PO SCH (09:50)
[2017-06-19] MEDS: THIAMINE HCL 100 MG TABLET (FP) PO SCH (21:06)
[2017-06-19] MEDS: diphenhydrAMINE HCL 25 MG CAPSULE (FP) PO PRN (21:06)
[2017-06-20] MEDS: CLINDAMYCIN HCL 150 MG CAPSULE (FP) PO SCH ×2 (06:28→14:00)
[2017-06-20] MEDS: PRENATAL VITAMINS W/ FOLIC ACID TABLET (FP) PO SCH (09:45)
[2017-06-20] MEDS: NICOTINE 21 MG/24 HOURS TOPICAL PATCH TD SCH (09:46)
[2017-06-20] MEDS: THIAMINE HCL 100 MG TABLET (FP) PO SCH (21:06)
[2017-06-20] MEDS: diphenhydrAMINE HCL 25 MG CAPSULE (FP) PO PRN (21:07)
[2017-06-20] MEDS: IBUPROFEN 400 MG TABLET (FP) PO PRN (21:07)
[2017-06-20] MEDS: guaiFENesin/D-METHORPHAN HB 10 ML UNIT-DOSE CUPS PO PRN (21:08)
[2017-06-21] MEDS: diphenhydrAMINE HCL 25 MG CAPSULE (FP) PO PRN ×2 (06:08→21:10)
[2017-06-21] MEDS: NICOTINE 21 MG/24 HOURS TOPICAL PATCH TD SCH (10:02)
[2017-06-21] MEDS: PRENATAL VITAMINS W/ FOLIC ACID TABLET (FP) PO SCH (10:02)
[2017-06-21] MEDS: NICOTINE POLACRILEX 4 MG GUM BUC PRN (10:03)
[2017-06-21] MEDS: CHOLECALCIFEROL (VITAMIN D3) 1,000 UNIT TABLET (FP) PO SCH (14:50)
[2017-06-21] MEDS: THIAMINE HCL 100 MG TABLET (FP) PO SCH (21:08)
[2017-06-21] MEDS: IBUPROFEN 400 MG TABLET (FP) PO PRN (21:10)
[2017-06-22] MEDS: PRENATAL VITAMINS W/ FOLIC ACID TABLET (FP) PO SCH (09:57)
[2017-06-22] MEDS: NICOTINE 21 MG/24 HOURS TOPICAL PATCH TD SCH (09:58)
[2017-06-22] MEDS: NICOTINE POLACRILEX 4 MG GUM BUC PRN (09:58)
[2017-06-22] MEDS: CHOLECALCIFEROL (VITAMIN D3) 1,000 UNIT TABLET (FP) PO SCH (09:58)
[2017-06-22] MEDS: IBUPROFEN 400 MG TABLET (FP) PO PRN (21:07)
[2017-06-22] MEDS: THIAMINE HCL 100 MG TABLET (FP) PO SCH (21:08)
[2017-06-23] MEDS: NICOTINE 21 MG/24 HOURS TOPICAL PATCH TD SCH (09:58)
[2017-06-23] MEDS: PRENATAL VITAMINS W/ FOLIC ACID TABLET (FP) PO SCH (09:59)
[2017-06-23] MEDS: CHOLECALCIFEROL (VITAMIN D3) 1,000 UNIT TABLET (FP) PO SCH (09:59)
[2017-06-23] MEDS: NICOTINE POLACRILEX 4 MG GUM BUC PRN (10:00)
[2017-06-23] MEDS: IBUPROFEN 400 MG TABLET (FP) PO PRN (21:11)
[2017-06-23] MEDS: diphenhydrAMINE HCL 25 MG CAPSULE (FP) PO PRN (21:11)
[2017-06-23] MEDS: THIAMINE HCL 100 MG TABLET (FP) PO SCH (21:12)
[2017-06-24] MEDS: CHOLECALCIFEROL (VITAMIN D3) 1,000 UNIT TABLET (FP) PO SCH (09:40)
[2017-06-24] MEDS: NICOTINE 21 MG/24 HOURS TOPICAL PATCH TD SCH (09:40)
[2017-06-24] MEDS: PRENATAL VITAMINS W/ FOLIC ACID TABLET (FP) PO SCH (09:40)
[2017-06-24] MEDS: NICOTINE POLACRILEX 4 MG GUM BUC PRN (09:43)
[2017-06-24] MEDS: THIAMINE HCL 100 MG TABLET (FP) PO SCH (21:05)
[2017-06-24] MEDS: IBUPROFEN 400 MG TABLET (FP) PO PRN (21:06)
[2017-06-24] MEDS: diphenhydrAMINE HCL 25 MG CAPSULE (FP) PO PRN (21:06)
[2017-06-25] MEDS: PRENATAL VITAMINS W/ FOLIC ACID TABLET (FP) PO SCH (09:47)
[2017-06-25] MEDS: CHOLECALCIFEROL (VITAMIN D3) 1,000 UNIT TABLET (FP) PO SCH (09:47)
[2017-06-25] MEDS: NICOTINE 21 MG/24 HOURS TOPICAL PATCH TD SCH (09:48)
[2017-06-25] MEDS: NICOTINE POLACRILEX 4 MG GUM BUC PRN (09:48)
[2017-06-25] MEDS: diphenhydrAMINE HCL 25 MG CAPSULE (FP) PO PRN (21:08)
[2017-06-25] MEDS: IBUPROFEN 400 MG TABLET (FP) PO PRN (21:08)
[2017-06-25] MEDS: THIAMINE HCL 100 MG TABLET (FP) PO SCH (21:08)
[2017-06-26] MEDS: NICOTINE 21 MG/24 HOURS TOPICAL PATCH TD SCH (09:40)
[2017-06-26] MEDS: CHOLECALCIFEROL (VITAMIN D3) 1,000 UNIT TABLET (FP) PO SCH (09:41)
[2017-06-26] MEDS: PRENATAL VITAMINS W/ FOLIC ACID TABLET (FP) PO SCH (09:41)
[2017-06-26] MEDS: NICOTINE POLACRILEX 4 MG GUM BUC PRN (09:41)
[2017-06-26] MEDS: IBUPROFEN 400 MG TABLET (FP) PO PRN (21:08)
[2017-06-26] MEDS: diphenhydrAMINE HCL 25 MG CAPSULE (FP) PO PRN (21:08)
[2017-06-26] MEDS: THIAMINE HCL 100 MG TABLET (FP) PO SCH (21:08)
[2017-06-27] MEDS: NICOTINE 21 MG/24 HOURS TOPICAL PATCH TD SCH (10:06)
[2017-06-27] MEDS: NICOTINE POLACRILEX 4 MG GUM BUC PRN (10:07)
[2017-06-27] MEDS: PRENATAL VITAMINS W/ FOLIC ACID TABLET (FP) PO SCH (10:07)
[2017-06-27] MEDS: CHOLECALCIFEROL (VITAMIN D3) 1,000 UNIT TABLET (FP) PO SCH (10:07)
[2017-06-27] MEDS: diphenhydrAMINE HCL 25 MG CAPSULE (FP) PO PRN (21:08)
[2017-06-27] MEDS: THIAMINE HCL 100 MG TABLET (FP) PO SCH (21:08)
[2017-06-27] MEDS: IBUPROFEN 400 MG TABLET (FP) PO PRN (21:08)
[2017-06-28] MEDS: CHOLECALCIFEROL (VITAMIN D3) 1,000 UNIT TABLET (FP) PO SCH (09:44)
[2017-06-28] MEDS: PRENATAL VITAMINS W/ FOLIC ACID TABLET (FP) PO SCH (09:44)
[2017-06-28] MEDS: NICOTINE 21 MG/24 HOURS TOPICAL PATCH TD SCH (09:44)
[2017-06-28] MEDS: NICOTINE POLACRILEX 4 MG GUM BUC PRN (09:45)
[2017-06-28] MEDS: THIAMINE HCL 100 MG TABLET (FP) PO SCH (21:10)
[2017-06-28] MEDS: diphenhydrAMINE HCL 25 MG CAPSULE (FP) PO PRN (21:11)
[2017-06-28] MEDS: IBUPROFEN 400 MG TABLET (FP) PO PRN (21:11)
[2017-06-29] MEDS: NICOTINE 21 MG/24 HOURS TOPICAL PATCH TD SCH (09:49)
[2017-06-29] MEDS: PRENATAL VITAMINS W/ FOLIC ACID TABLET (FP) PO SCH (09:49)
[2017-06-29] MEDS: CHOLECALCIFEROL (VITAMIN D3) 1,000 UNIT TABLET (FP) PO SCH (09:49)
[2017-06-29] MEDS: NICOTINE POLACRILEX 4 MG GUM BUC PRN (09:50)
[2017-06-29] MEDS: THIAMINE HCL 100 MG TABLET (FP) PO SCH (21:09)
[2017-06-29] MEDS: IBUPROFEN 400 MG TABLET (FP) PO PRN (21:10)
[2017-06-29] MEDS: diphenhydrAMINE HCL 25 MG CAPSULE (FP) PO PRN (21:10)
[2017-06-30] MEDS: CHOLECALCIFEROL (VITAMIN D3) 1,000 UNIT TABLET (FP) PO SCH (10:05)
[2017-06-30] MEDS: NICOTINE 21 MG/24 HOURS TOPICAL PATCH TD SCH (10:06)
[2017-06-30] MEDS: PRENATAL VITAMINS W/ FOLIC ACID TABLET (FP) PO SCH (10:06)
[2017-06-30] MEDS: NICOTINE POLACRILEX 4 MG GUM BUC PRN (10:07)
[2017-06-30] MEDS: THIAMINE HCL 100 MG TABLET (FP) PO SCH (21:03)
[2017-06-30] MEDS: diphenhydrAMINE HCL 25 MG CAPSULE (FP) PO PRN (21:04)
[2017-06-30] MEDS: IBUPROFEN 400 MG TABLET (FP) PO PRN (21:05)
[2017-07-01] MEDS: PRENATAL VITAMINS W/ FOLIC ACID TABLET (FP) PO SCH (10:12)
[2017-07-01] MEDS: NICOTINE 21 MG/24 HOURS TOPICAL PATCH TD SCH (10:12)
[2017-07-01] MEDS: CHOLECALCIFEROL (VITAMIN D3) 1,000 UNIT TABLET (FP) PO SCH (10:12)
[2017-07-01] MEDS: NICOTINE POLACRILEX 4 MG GUM BUC PRN (10:12)
[2017-07-01] MEDS: IBUPROFEN 400 MG TABLET (FP) PO PRN (21:07)
[2017-07-01] MEDS: diphenhydrAMINE HCL 25 MG CAPSULE (FP) PO PRN (21:07)
[2017-07-01] MEDS: THIAMINE HCL 100 MG TABLET (FP) PO SCH (21:08)
[2017-07-02] MEDS: CHOLECALCIFEROL (VITAMIN D3) 1,000 UNIT TABLET (FP) PO SCH (09:46)
[2017-07-02] MEDS: PRENATAL VITAMINS W/ FOLIC ACID TABLET (FP) PO SCH (09:46)
[2017-07-02] MEDS: NICOTINE 21 MG/24 HOURS TOPICAL PATCH TD SCH (09:47)
[2017-07-02] MEDS: NICOTINE POLACRILEX 4 MG GUM BUC PRN (09:48)
[2017-07-02] MEDS: THIAMINE HCL 100 MG TABLET (FP) PO SCH (21:05)
[2017-07-02] MEDS: diphenhydrAMINE HCL 25 MG CAPSULE (FP) PO PRN (21:06)
[2017-07-02] MEDS: ACETAMINOPHEN 325 MG TABLET (FP) PO PRN (21:07)
[2017-07-03] MEDS: CHOLECALCIFEROL (VITAMIN D3) 1,000 UNIT TABLET (FP) PO SCH (10:05)
[2017-07-03] MEDS: NICOTINE POLACRILEX 4 MG GUM BUC PRN (10:05)
[2017-07-03] MEDS: PRENATAL VITAMINS W/ FOLIC ACID TABLET (FP) PO SCH (10:05)
[2017-07-03] MEDS: NICOTINE 21 MG/24 HOURS TOPICAL PATCH TD SCH (10:05)
[2017-07-03] MEDS: THIAMINE HCL 100 MG TABLET (FP) PO SCH (21:05)
[2017-07-03] MEDS: diphenhydrAMINE HCL 25 MG CAPSULE (FP) PO PRN (21:05)
[2017-07-03] MEDS: IBUPROFEN 400 MG TABLET (FP) PO PRN (21:06)
[2017-07-04] MEDS: NICOTINE 21 MG/24 HOURS TOPICAL PATCH TD SCH (09:52)
[2017-07-04] MEDS: CHOLECALCIFEROL (VITAMIN D3) 1,000 UNIT TABLET (FP) PO SCH (09:52)
[2017-07-04] MEDS: PRENATAL VITAMINS W/ FOLIC ACID TABLET (FP) PO SCH (09:52)
[2017-07-04] MEDS: NICOTINE POLACRILEX 4 MG GUM BUC PRN (09:53)
[2017-07-04] MEDS: diphenhydrAMINE HCL 25 MG CAPSULE (FP) PO PRN (21:07)
[2017-07-04] MEDS: THIAMINE HCL 100 MG TABLET (FP) PO SCH (21:07)
[2017-07-04] MEDS: IBUPROFEN 400 MG TABLET (FP) PO PRN (21:08)
[2017-07-05] MEDS: PRENATAL VITAMINS W/ FOLIC ACID TABLET (FP) PO SCH (10:00)
[2017-07-05] MEDS: CHOLECALCIFEROL (VITAMIN D3) 1,000 UNIT TABLET (FP) PO SCH (10:00)
[2017-07-05] MEDS: NICOTINE 21 MG/24 HOURS TOPICAL PATCH TD SCH (10:00)
[2017-07-05] MEDS: NICOTINE POLACRILEX 4 MG GUM BUC PRN (10:01)
[2017-07-05] MEDS: IBUPROFEN 400 MG TABLET (FP) PO PRN (21:05)
[2017-07-05] MEDS: THIAMINE HCL 100 MG TABLET (FP) PO SCH (21:05)
[2017-07-05] MEDS: diphenhydrAMINE HCL 25 MG CAPSULE (FP) PO PRN (21:05)
[2017-07-06] MEDS: NICOTINE 21 MG/24 HOURS TOPICAL PATCH TD SCH (09:49)
[2017-07-06] MEDS: PRENATAL VITAMINS W/ FOLIC ACID TABLET (FP) PO SCH (09:49)
[2017-07-06] MEDS: CHOLECALCIFEROL (VITAMIN D3) 1,000 UNIT TABLET (FP) PO SCH (09:50)
[2017-07-06] MEDS: NICOTINE POLACRILEX 4 MG GUM BUC PRN ×2 (09:50→21:08)
[2017-07-06] MEDS: THIAMINE HCL 100 MG TABLET (FP) PO SCH (21:06)
[2017-07-06] MEDS: diphenhydrAMINE HCL 25 MG CAPSULE (FP) PO PRN (21:07)
[2017-07-06] MEDS: IBUPROFEN 400 MG TABLET (FP) PO PRN (21:07)
[2017-07-07] MEDS: CHOLECALCIFEROL (VITAMIN D3) 1,000 UNIT TABLET (FP) PO SCH (09:49)
[2017-07-07] MEDS: PRENATAL VITAMINS W/ FOLIC ACID TABLET (FP) PO SCH (09:49)
[2017-07-07] MEDS: NICOTINE POLACRILEX 4 MG GUM BUC PRN (09:50)
[2017-07-07] MEDS: NICOTINE 21 MG/24 HOURS TOPICAL PATCH TD SCH (09:50)
[2017-07-07] MEDS: THIAMINE HCL 100 MG TABLET (FP) PO SCH (21:03)
[2017-07-07] MEDS: IBUPROFEN 400 MG TABLET (FP) PO PRN (21:03)
[2017-07-07] MEDS: diphenhydrAMINE HCL 25 MG CAPSULE (FP) PO PRN (21:03)
[2017-07-08] MEDS: NICOTINE 21 MG/24 HOURS TOPICAL PATCH TD SCH (09:56)
[2017-07-08] MEDS: CHOLECALCIFEROL (VITAMIN D3) 1,000 UNIT TABLET (FP) PO SCH (09:57)
[2017-07-08] MEDS: NICOTINE POLACRILEX 4 MG GUM BUC PRN (09:57)
[2017-07-08] MEDS: PRENATAL VITAMINS W/ FOLIC ACID TABLET (FP) PO SCH (09:57)
[2017-07-08] MEDS: IBUPROFEN 400 MG TABLET (FP) PO PRN (21:05)
[2017-07-08] MEDS: diphenhydrAMINE HCL 25 MG CAPSULE (FP) PO PRN (21:05)
[2017-07-08] MEDS: THIAMINE HCL 100 MG TABLET (FP) PO SCH (21:05)
[2017-07-09] MEDS: NICOTINE 21 MG/24 HOURS TOPICAL PATCH TD SCH (09:53)
[2017-07-09] MEDS: PRENATAL VITAMINS W/ FOLIC ACID TABLET (FP) PO SCH (09:53)
[2017-07-09] MEDS: NICOTINE POLACRILEX 4 MG GUM BUC PRN (09:53)
[2017-07-09] MEDS: CHOLECALCIFEROL (VITAMIN D3) 1,000 UNIT TABLET (FP) PO SCH (09:53)
[2017-07-09] MEDS: diphenhydrAMINE HCL 25 MG CAPSULE (FP) PO PRN (21:49)
[2017-07-09] MEDS: IBUPROFEN 400 MG TABLET (FP) PO PRN (21:49)
[2017-07-09] MEDS: THIAMINE HCL 100 MG TABLET (FP) PO SCH (21:49)
[2017-07-10 07:13] VITALS: TEMP 98.1
[2017-07-10] MEDS ORDERED: PT OWN MED DRAWER 7, Y5N ONE (09:30)
[2017-07-10] MEDS: PRENATAL VITAMINS W/ FOLIC ACID TABLET (FP) PO SCH (09:38)
[2017-07-10] MEDS: CHOLECALCIFEROL (VITAMIN D3) 1,000 UNIT TABLET (FP) PO SCH (09:38)
[2017-07-10] MEDS: NICOTINE 21 MG/24 HOURS TOPICAL PATCH TD SCH (09:38)
[2017-07-10] MEDS: IBUPROFEN 400 MG TABLET (FP) PO PRN (21:06)
[2017-07-10] MEDS: THIAMINE HCL 100 MG TABLET (FP) PO SCH (21:06)
[2017-07-10] MEDS: diphenhydrAMINE HCL 25 MG CAPSULE (FP) PO PRN (21:07)
[2017-07-11 06:27] VITALS: BP 132/78; PULSE 99
--- NOTE | 2017-07-11 09:49 | PN ---
Psychiatric Progress Note Vital Signs: Vital Signs Period Temp Pulse Resp BP Sys/Ac Pulse Ox Last 24 Hr 98.1 F 99 16-18 132/78 Date of Session: 07/11/17 Chief Complaint:: discharge visit HPI: Patient is addressing alcohol, nicotine dependence comorbid alcohol induced mood disorder. ROS: WNL Current Medications: Active Medications Generic Name Dose Route Start Last Admin Trade Name Freq PRN Reason Stop Dose Admin Acetaminophen 650 mg 06/14/17 15:15 07/02/17 21:07 Tylenol - PO 650 mg Q4H PRN Administration FEVER OR PAIN Al Hydroxide/Mg Hydroxide 30 ml 06/14/17 15:15 Mylanta Oral Suspension - PO Q6H PRN DYSPEPSIA Cholecalciferol 1,000 unit 06/21/17 14:15 07/10/17 09:38 Vitamin D3 - PO 1,000 unit DAILY NAHEED Administration Diphenhydramine HCl 25 mg 06/14/17 15:18 07/10/17 21:07 Benadryl - PO 25 mg Q6H PRN Administration FOR ITCHING Eucalyptus/Menthol/Phenol/Sorbitol 1 each 06/14/17 15:15 Cepastat Lozenge - MM Q4H PRN SORE THROAT Guaifenesin 10 ml 06/14/17 15:15 06/20/17 21:08 Robitussin Dm - PO 10 ml Q6H PRN Administration COUGH Hydrocortisone 1 applic 06/14/17 15:18 06/16/17 09:47 Hytone 1% Lotion - TP 1 applic TID PRN Administration DRY SKIN Hydroxyzine Pamoate 50 mg 06/14/17 15:15 06/19/17 09:50 Vistaril - PO 50 mg Q4H PRN Administration AGITATION Ibuprofen 400 mg 06/14/17 15:15 07/10/17 21:06 Motrin - PO 400 mg Q6H PRN Administration PAIN Loperamide HCl 4 mg 06/14/17 15:15 Imodium - PO Q6H PRN DIARRHEA Magnesium Hydroxide 30 ml 06/14/17 15:15 Milk Of Magnesia - PO DAILY PRN CONSTIPATION Nicotine 21 mg 06/15/17 10:00 07/10/17 09:38 Nicoderm Patch - TD 21 mg DAILY NAHEED Administration Nicotine Polacrilex 4 mg 06/14/17 15:15 07/09/17 09:53 Nicorette Gum - BUC 4 mg Q2H PRN Administration NICOTINE REPLACEMENT RX Multivit/Folic Acid/Iron 1 tab 06/15/17 10:00 07/10/17 09:38 Vitamins (Sjr) - PO 1 tab DAILY NAHEED Administration Pseudoephedrine/Triprolidine 1 combo 06/14/17 15:15 Actifed - PO TID PRN NASAL CONGESTION Thiamine HCl 100 mg 06/14/17 22:00 07/10/17 21:06 Vitamin B1 - PO 100 mg HS NAHEED Administration Current Side Effect: No Lab tests ordered: No Lab tests reviewed: Yes Provider note:: Patient has completed today his treatment and met his goals, will continue address his issues at [facility]. Patient gained insights into his addiction, understands the negative consequenses if his addiction over his major life emilia and verbalized motivations to continue maintain abstinence, patient was encouraged to utilize all supports to maintain abstinence. Patient is stable for discharge today. Total face to face time:: 35 Mental Status Exam - Mental Status Exam Alert and Oriented to: Time, Place, Person Cognitive Function: Good Patient Appearance: Well Groomed Mood: Hopeful Affect: Appropriate, Mood Congruent Patient Behavior: Appropriate, Cooperative Speech Pattern: Clear, Appropriate Voice Loudness: Normal Thought Process: Goal Oriented Thought Disorder: Not Present Hallucinations: Denies Suicidal Ideation: Denies Homicidal Ideation: Denies Insight/Judgement: Fair Sleep: Fair Appetite: Fair Muscle strength/Tone: Normal Gait/Station: Normal Psychiatric Treatment Plan - Problem List (1) Nicotine dependence Current Visit: No (2) Alcohol dependence Current Visit: Yes (3) Alcohol-induced mood disorder Current Visit: Yes
[2017-07-11] MEDS: PRENATAL VITAMINS W/ FOLIC ACID TABLET (FP) PO SCH (10:07)
[2017-07-11] MEDS: NICOTINE 21 MG/24 HOURS TOPICAL PATCH TD SCH (10:07)
[2017-07-11] MEDS: CHOLECALCIFEROL (VITAMIN D3) 1,000 UNIT TABLET (FP) PO SCH (10:07)
== END 2017-07-11 11:20 | disposition home or self-care (01) | DRG 772 ==
LOC: YASAS 14:20 → Y5N 14:21
PROVIDERS: ADMIT Psychiatry & Neurology Psychiatry; ATTEND Psychiatry & Neurology Psychiatry
PROC: HZ42ZZZ Group Counseling for Substance Abuse Treatment, Cognitive-Behavioral (ICD-10-PCS; principal; 2017-06-14)
DX: F10.20 Alcohol dependence, uncomplicated (principal); F10.24 Alcohol dependence with alcohol-induced mood disorder; F17.210 Nicotine dependence, cigarettes, uncomplicated; Z88.0 Allergy status to penicillin; Z88.1 Allergy status to other antibiotic agents
CPT/HCPCS: 36415; 87389

== ENCOUNTER 2022-02-04 10:21 | Inpatient (IN) | payer OTHER ==
[2022-02-04] MEDS ORDERED: DICYCLOMINE HCL 10 MG CAPSULE PO PRN (12:16)
[2022-02-04] MEDS ORDERED: MAGNESIUM CITRATE 300 ML BOTTLE PO PRN (12:16)
[2022-02-04] MEDS ORDERED: MAGNESIUM HYDROX 2400MG/30ML ORAL SUSPENSION 30 ML CUP PO PRN (12:16)
[2022-02-04] MEDS ORDERED: MAG HYDROX/AL HYDROX/SIMETH 30 ML UNIT-DOSE CUP PO PRN (12:16)
[2022-02-04] MEDS ORDERED: ACETAMINOPHEN 325 MG TABLET (FP) PO PRN ×2 (12:16)
[2022-02-04] MEDS ORDERED: LOPERAMIDE HCL 2 MG CAPSULE PO PRN (12:16)
[2022-02-04] MEDS ORDERED: BISMUTH SUBSALICYLATE 524 MG/30 ML PO PRN (12:16)
[2022-02-04] MEDS ORDERED: IBUPROFEN 400 MG TABLET (FP) PO PRN (12:16)
[2022-02-04] MEDS ORDERED: LORazepam 1 MG TABLET PO PRN (12:16)
[2022-02-04] MEDS ORDERED: BENZOCAINE/MENTHOL (CHLORASEPTIC ) LOZENGE MM PRN (12:16)
[2022-02-04] MEDS ORDERED: ONDANSETRON *ODT* 4 MG TABLET SL PRN (12:16)
[2022-02-04 13:50] VITALS: BMI 26.5
[2022-02-04] MEDS: hydrOXYzine PAMOATE 25 MG CAPSULE (FP) PO SCH ×3 (15:31→22:40)
[2022-02-04] MEDS: PRENATAL VITAMINS W/ FOLIC ACID TABLET (FP) PO SCH (15:32)
[2022-02-04] MEDS: NICOTINE 10 MG CARTRIDGE (INHALER) IH PRN (15:34)
[2022-02-04] MEDS: NICOTINE 21 MG/24 HOURS TOPICAL PATCH TD SCH (15:34)
[2022-02-04 17:16] LABS: HEMATOCRIT 42.8 % (35.4-49); HEMOGLOBIN 14.6 GM/dL (11.7-16.9); MCHC 34.1 g/dl (32.0-35.9); MEAN CELL VOLUME 93.6 fl (80-96); MEAN PLT VOLUME 8.3 fl (7.5-11.1); PLATELET COUNT 382 10^3/uL (134-434); RBC 4.57 M/mm3 (4.00-5.60); RDW 14.4 % (11.9-15.9); WHITE BLOOD COUNT 9.2 K/mm3 (4.0-10.0)
[2022-02-04 17:39] LABS: CALCIUM 9.7 mg/dL (8.5-10.1)
[2022-02-04 17:40] LABS: ALBUMIN 3.8 g/dl (3.4-5.0)
[2022-02-04 17:42] LABS: CREATININE 0.9 mg/dL (0.55-1.3)
[2022-02-04 17:43] LABS: BILIRUBIN,TOTAL 0.6 mg/dL (0.2-1); TOT PROT 7.4 g/dl (6.4-8.2)
[2022-02-04] MEDS: LORazepam 2 MG TABLET PO SCH ×2 (18:30→22:38)
[2022-02-04] MEDS: THIAMINE HCL 100 MG TABLET (FP) PO SCH (22:38)
[2022-02-04] MEDS: MELATONIN 5 MG TABLETS PO SCH (22:40)
[2022-02-05] MEDS: hydrOXYzine PAMOATE 25 MG CAPSULE (FP) PO SCH ×5 (07:30→22:54)
[2022-02-05] MEDS: LORazepam 2 MG TABLET PO SCH ×4 (07:30→22:54)
[2022-02-05] MEDS: PRENATAL VITAMINS W/ FOLIC ACID TABLET (FP) PO SCH (10:10)
[2022-02-05] MEDS: METHOCARBAMOL 500 MG TABLET PO PRN (10:11)
[2022-02-05 11:31] LABS: HIV INTERPRETATION NEGATIVE (NEGATIVE)
[2022-02-05] MEDS: NICOTINE 21 MG/24 HOURS TOPICAL PATCH TD SCH (14:16)
[2022-02-05] MEDS: THIAMINE HCL 100 MG TABLET (FP) PO SCH (22:54)
[2022-02-05] MEDS: MELATONIN 5 MG TABLETS PO SCH (22:54)
[2022-02-06] MEDS: LORazepam 1 MG TABLET PO SCH ×4 (06:07→22:10)
[2022-02-06] MEDS: hydrOXYzine PAMOATE 25 MG CAPSULE (FP) PO SCH ×3 (06:07→13:15)
[2022-02-06] MEDS: NICOTINE 21 MG/24 HOURS TOPICAL PATCH TD SCH (10:06)
[2022-02-06] MEDS: METHOCARBAMOL 500 MG TABLET PO PRN (10:07)
[2022-02-06] MEDS: PRENATAL VITAMINS W/ FOLIC ACID TABLET (FP) PO SCH (10:07)
[2022-02-06] MEDS ORDERED: hydrOXYzine PAMOATE 25 MG CAPSULE (FP) PO PRN (14:38)
[2022-02-06] MEDS: TOLNAFTATE 1% CREAM 15 GM TUBE TP SCH ×2 (18:14→22:12)
[2022-02-06 19:07] LABS: SARS-CoV-2 NAA Not Detected (Not Detected)
[2022-02-06] MEDS: THIAMINE HCL 100 MG TABLET (FP) PO SCH (22:10)
[2022-02-06] MEDS: MELATONIN 5 MG TABLETS PO SCH (22:11)
[2022-02-07] MEDS ORDERED: LORazepam 0.5 MG TABLET PO PRN
[2022-02-07] MEDS: LORazepam 0.5 MG TABLET PO SCH ×4 (05:21→22:08)
[2022-02-07] MEDS: NICOTINE 21 MG/24 HOURS TOPICAL PATCH TD SCH (10:04)
[2022-02-07] MEDS: PRENATAL VITAMINS W/ FOLIC ACID TABLET (FP) PO SCH (10:06)
[2022-02-07] MEDS: METHOCARBAMOL 500 MG TABLET PO PRN (10:06)
[2022-02-07] MEDS: TOLNAFTATE 1% CREAM 15 GM TUBE TP SCH ×2 (10:07→22:10)
[2022-02-07] MEDS: THIAMINE HCL 100 MG TABLET (FP) PO SCH (22:08)
[2022-02-07] MEDS: MELATONIN 5 MG TABLETS PO SCH (22:09)
[2022-02-08] MEDS ORDERED: LORazepam 0.5 MG TABLET PO ONE (05:00)
[2022-02-08 09:04] VITALS: BP 120/72; PULSE 97; TEMP 96.8
[2022-02-08] MEDS: PRENATAL VITAMINS W/ FOLIC ACID TABLET (FP) PO SCH (10:13)
[2022-02-08] MEDS: TOLNAFTATE 1% CREAM 15 GM TUBE TP SCH (10:13)
[2022-02-08] MEDS: NICOTINE 10 MG CARTRIDGE (INHALER) IH PRN (10:30)
== END 2022-02-08 11:30 | disposition other institution (70) | DRG 774 ==
LOC: YASAS 10:21 → Y6N 13:49
PROVIDERS: ADMIT Allergy & Immunology; ATTEND Allergy & Immunology
PROC: HZ2ZZZZ Detoxification Services for Substance Abuse Treatment (ICD-10-PCS; principal; 2022-02-04)
DX: F10.230 Alcohol dependence with withdrawal, uncomplicated (principal); F14.20 Cocaine dependence, uncomplicated; F15.20 Other stimulant dependence, uncomplicated; F17.213 Nicotine dependence, cigarettes, with withdrawal; J44.9 Chronic obstructive pulmonary disease, unspecified; G47.30 Sleep apnea, unspecified; M54.50 Low back pain, unspecified; G89.29 Other chronic pain; Z59.02 Unsheltered homelessness
CPT/HCPCS: 36415; 80053; 84450; 84460; 85027; 86780; 87389; 93005; 93010; C9803-CS; U0003; U0005

== ENCOUNTER 2022-02-08 11:40 | Inpatient (IN) | payer OTHER ==
[2022-02-08] MEDS ORDERED: MAGNESIUM HYDROX 2400MG/30ML ORAL SUSPENSION 30 ML CUP PO PRN (14:03)
[2022-02-08] MEDS ORDERED: LOPERAMIDE HCL 2 MG CAPSULE PO PRN (14:03)
[2022-02-08] MEDS ORDERED: guaiFENesin 200 MG/10 ML 10 ML UNIT-DOSE CUPS PO PRN (14:03)
[2022-02-08] MEDS ORDERED: MAGNESIUM CITRATE 300 ML BOTTLE PO PRN (14:03)
[2022-02-08] MEDS ORDERED: MAG HYDROX/AL HYDROX/SIMETH 30 ML UNIT-DOSE CUP PO PRN (14:03)
[2022-02-08] MEDS ORDERED: IBUPROFEN 400 MG TABLET (FP) PO PRN (14:03)
[2022-02-08] MEDS ORDERED: P-EPHED 60MG/TRIPROLIDI 2.5MG TABLET PO PRN (14:03)
[2022-02-08] MEDS ORDERED: BENZOCAINE/MENTHOL (CHLORASEPTIC ) LOZENGE MM PRN (14:03)
[2022-02-08] MEDS ORDERED: ACETAMINOPHEN 325 MG TABLET (FP) PO PRN (14:03)
[2022-02-08] MEDS: MELATONIN 5 MG TABLETS PO SCH (21:24)
[2022-02-08] MEDS: THIAMINE HCL 100 MG TABLET (FP) PO SCH (21:24)
[2022-02-08] MEDS: TOLNAFTATE 1% CREAM 15 GM TUBE TP SCH (21:26)
[2022-02-09] MEDS: NICOTINE 10 MG CARTRIDGE (INHALER) IH PRN ×2 (07:59→14:44)
[2022-02-09] MEDS: PRENATAL VITAMINS W/ FOLIC ACID TABLET (FP) PO SCH (09:57)
[2022-02-09] MEDS: NICOTINE 21 MG/24 HOURS TOPICAL PATCH TD SCH (09:57)
[2022-02-09] MEDS: TOLNAFTATE 1% CREAM 15 GM TUBE TP SCH ×2 (09:57→21:35)
[2022-02-09] MEDS: MELATONIN 5 MG TABLETS PO SCH (21:35)
[2022-02-09] MEDS: THIAMINE HCL 100 MG TABLET (FP) PO SCH (21:35)
[2022-02-10] MEDS: hydrOXYzine PAMOATE 25 MG CAPSULE (FP) PO PRN (09:44)
[2022-02-10] MEDS: PRENATAL VITAMINS W/ FOLIC ACID TABLET (FP) PO SCH (09:44)
[2022-02-10] MEDS: NICOTINE 21 MG/24 HOURS TOPICAL PATCH TD SCH (09:45)
[2022-02-10] MEDS: TOLNAFTATE 1% CREAM 15 GM TUBE TP SCH ×2 (09:45→21:17)
[2022-02-10] MEDS ORDERED: COLLOIDAL OATMEAL 1 BAR EACH TP PRN (09:52)
[2022-02-10] MEDS: METHOCARBAMOL 500 MG TABLET PO SCH ×4 (10:45→21:17)
[2022-02-10 14:08] LABS: PH,URINE 7.5 (5.0-8.0); URINE APPEARANCE CLEAR; URINE BILIRUBIN NEGATIVE (NEGATIVE); URINE COLOR YELLOW; URINE GLUCOSE (UA) NEGATIVE (NEGATIVE); URINE KETONE NEGATIVE (NEGATIVE); URINE LEUK ESTERASE NEGATIVE (NEGATIVE); URINE NITRITE NEGATIVE (NEGATIVE); URINE PROTEIN NEGATIVE (NEGATIVE); URINE UROBILINOGEN 0.2 mg/dL (0.2-1.0)
[2022-02-10] MEDS: THIAMINE HCL 100 MG TABLET (FP) PO SCH (21:17)
[2022-02-10] MEDS: MELATONIN 5 MG TABLETS PO SCH (21:17)
[2022-02-11] MEDS: NICOTINE 21 MG/24 HOURS TOPICAL PATCH TD SCH (10:13)
[2022-02-11] MEDS: TOLNAFTATE 1% CREAM 15 GM TUBE TP SCH ×2 (10:13→21:32)
[2022-02-11] MEDS: METHOCARBAMOL 500 MG TABLET PO SCH ×4 (10:13→21:31)
[2022-02-11] MEDS: PRENATAL VITAMINS W/ FOLIC ACID TABLET (FP) PO SCH (10:13)
[2022-02-11] MEDS: hydrOXYzine PAMOATE 25 MG CAPSULE (FP) PO PRN (14:02)
[2022-02-11] MEDS: MELATONIN 5 MG TABLETS PO SCH (21:31)
[2022-02-11] MEDS: THIAMINE HCL 100 MG TABLET (FP) PO SCH (21:31)
[2022-02-12] MEDS ORDERED: NICOTINE POLACRILEX 2 MG GUM BUC PRN (09:23)
[2022-02-12] MEDS: PRENATAL VITAMINS W/ FOLIC ACID TABLET (FP) PO SCH (10:04)
[2022-02-12] MEDS: METHOCARBAMOL 500 MG TABLET PO SCH ×4 (10:04→21:53)
[2022-02-12] MEDS: NICOTINE 21 MG/24 HOURS TOPICAL PATCH TD SCH (10:04)
[2022-02-12] MEDS: TOLNAFTATE 1% CREAM 15 GM TUBE TP SCH ×2 (10:04→21:54)
[2022-02-12 14:09] LABS: SARS-CoV-2 NAA Not Detected (Not Detected)
[2022-02-12] MEDS: MELATONIN 5 MG TABLETS PO SCH (21:53)
[2022-02-12] MEDS: THIAMINE HCL 100 MG TABLET (FP) PO SCH (21:54)
[2022-02-13] MEDS: PRENATAL VITAMINS W/ FOLIC ACID TABLET (FP) PO SCH (09:28)
[2022-02-13] MEDS: PANTOPRAZOLE 20 MG TABLET PO SCH (09:28)
[2022-02-13] MEDS: METHOCARBAMOL 500 MG TABLET PO SCH ×4 (09:28→21:30)
[2022-02-13] MEDS: hydrOXYzine PAMOATE 25 MG CAPSULE (FP) PO PRN ×2 (09:29→21:31)
[2022-02-13] MEDS: NICOTINE 21 MG/24 HOURS TOPICAL PATCH TD SCH (09:30)
[2022-02-13] MEDS: TOLNAFTATE 1% CREAM 15 GM TUBE TP SCH ×2 (09:30→21:32)
[2022-02-13] MEDS: THIAMINE HCL 100 MG TABLET (FP) PO SCH (21:30)
[2022-02-13] MEDS: MELATONIN 5 MG TABLETS PO SCH (21:30)
[2022-02-14 07:18] VITALS: BP 126/80; PULSE 93; TEMP 97.6
[2022-02-14] MEDS: NICOTINE 21 MG/24 HOURS TOPICAL PATCH TD SCH (09:34)
[2022-02-14] MEDS: PRENATAL VITAMINS W/ FOLIC ACID TABLET (FP) PO SCH (09:34)
[2022-02-14] MEDS: TOLNAFTATE 1% CREAM 15 GM TUBE TP SCH (09:35)
[2022-02-14] MEDS: PANTOPRAZOLE 20 MG TABLET PO SCH (09:35)
[2022-02-14] MEDS: METHOCARBAMOL 500 MG TABLET PO SCH (09:35)
== END 2022-02-14 11:35 | disposition home or self-care (01) | DRG 772 ==
LOC: YASAS 11:40 → Y3E 11:41
PROVIDERS: ADMIT Allergy & Immunology; ATTEND Allergy & Immunology
PROC: HZ42ZZZ Group Counseling for Substance Abuse Treatment, Cognitive-Behavioral (ICD-10-PCS; principal; 2022-02-08)
DX: F10.20 Alcohol dependence, uncomplicated (principal); F14.20 Cocaine dependence, uncomplicated; F15.20 Other stimulant dependence, uncomplicated; F17.210 Nicotine dependence, cigarettes, uncomplicated; F19.282 Other psychoactive substance dependence with psychoactive substance-induced sleep disorder; F19.24 Other psychoactive substance dependence with psychoactive substance-induced mood disorder; F41.9 Anxiety disorder, unspecified; J44.9 Chronic obstructive pulmonary disease, unspecified; K21.9 Gastro-esophageal reflux disease without esophagitis; M54.50 Low back pain, unspecified; G89.29 Other chronic pain
CPT/HCPCS: 36415; 81003; 87491; 87591; C9803-CS; U0003; U0005

== ENCOUNTER 2022-02-12 16:28 | Emergency (ER) | payer OTHER ==
[2022-02-12 17:00] VITALS: BP 137/71; PULSE 97; TEMP 97.9; BMI 27.2
[2022-02-12] MEDS ORDERED: MAG HYDROX/AL HYDROX/SIMETH -MYLANTA- ORAL SUSPENSION PO ONE (18:21)
[2022-02-12] MEDS ORDERED: FAMOTIDINE 20 MG/50 ML IVPB 20 MG/50 ML MG IVPB ONE (18:21)
[2022-02-12] MEDS ORDERED: METOCLOPRAMIDE HCL INJECTION 10 MG/2 ML VIAL IVPB ONE (18:21)
[2022-02-12] MEDS ORDERED: ACETAMINOPHEN 1000 MG/100 ML BAG IVPB ONE (18:21)
[2022-02-12] MEDS ORDERED: SODIUM CHLORIDE 0.9% 1000 ML INFUS.BAG IV ONE (18:22)
[2022-02-12] MEDS ORDERED: METOCLOPRAMIDE HCL INJECTION 10 MG/2 ML VIAL ONE (18:41)
[2022-02-12] MEDS ORDERED: ACETAMINOPHEN INJECTION 100 ML IVPB ONE (18:41)
[2022-02-12] MEDS ORDERED: MAG HYDROX/AL HYDROX/SIMETH 30 ML UNIT-DOSE CUP ONE (18:42)
[2022-02-12] MEDS ORDERED: FAMOTIDINE 10 MG/ML VIAL IVPB ONE (18:43)
[2022-02-12 19:15] LABS: HEMATOCRIT 43.1 % (35.4-49); HEMOGLOBIN 14.7 GM/dL (11.7-16.9); MCH 31.1 pg (25.7-33.7); MCHC 34.2 g/dl (32.0-35.9); MEAN CELL VOLUME 90.9 fl (80-96); MEAN PLT VOLUME 8.1 fl (7.5-11.1); PLATELET COUNT 406 10^3/uL (134-434); RBC 4.74 M/mm3 (4.00-5.60); RDW 13.5 % (11.9-15.9); WHITE BLOOD COUNT 13.8 K/mm3 (4.0-10.0)
[2022-02-12 19:37] LABS: CALCIUM 9.7 mg/dL (8.5-10.1)
[2022-02-12 19:38] LABS: MAGNESIUM 2.4 mg/dL (1.8-2.4)
[2022-02-12 19:40] LABS: CREATININE 0.9 mg/dL (0.55-1.3); PHOSPHOROUS 4.6 mg/dL (2.5-4.9)
[2022-02-12 19:42] LABS: TOT PROT 7.6 g/dl (6.4-8.2)
[2022-02-12 19:43] LABS: BILIRUBIN,TOTAL 0.4 mg/dL (0.2-1)
[2022-02-12 20:52] LABS: ANISOCYTOSIS 0; HELMET CELLS 0; HOWELL-JOLLY BODIES 0; MACROCYTOSIS 0; OVALOCYTE 0; PLATELET ESTIMATE INCREASED; ROULEAU 0; SICKELED CELLS 0; TARGET CELLS 0; TEAR DROP CELLS 0; TOXIC GRANULATION 0
[2022-02-12] MEDS ORDERED: KETOROLAC TROMETHAMINE 30 MG/1 ML VIAL IM ONE (21:35)
[2022-02-12] MEDS ORDERED: KETOROLAC TROMETHAMINE 30 MG/1 ML VIAL ONE (21:40)
== END 2022-02-12 22:53 ==
LOC: JER 16:28
PROC: 3E033GC Introduction of Other Therapeutic Substance into Peripheral Vein, Percutaneous Approach (ICD-10-PCS; principal; 2022-02-12)
DX: F10.230 Alcohol dependence with withdrawal, uncomplicated (principal); K21.9 Gastro-esophageal reflux disease without esophagitis
CPT/HCPCS: 36415; 71046-TC-FY; 76705-TC; 80053; 83690; 83735; 84100; 85025; 93005; 93010; 99285-25

== ENCOUNTER 2022-02-14 15:47 | Emergency (ER) | payer OTHER ==
[2022-02-14 16:07] VITALS: BP 136/94; PULSE 67; TEMP 98.1; BMI 27.2
[2022-02-14 16:57] LABS: BASO % 1.2 % (0-2.0); EOS % 1.3 % (0-4.5); HEMATOCRIT 39.3 % (35.4-49); HEMOGLOBIN 13.7 GM/dL (11.7-16.9); LYMPH % 19.3 % (8-40); MCH 31.6 pg (25.7-33.7); MCHC 34.9 g/dl (32.0-35.9); MEAN CELL VOLUME 90.4 fl (80-96); MONO % 9.5 % (3.8-10.2); NEUT % 68.7 % (42.8-82.8); PLATELET COUNT 378 10^3/uL (134-434); RBC 4.35 M/mm3 (4.00-5.60); RDW 13.5 % (11.9-15.9); WHITE BLOOD COUNT 10.8 K/mm3 (4.0-10.0)
[2022-02-14 17:17] LABS: CALCIUM 9.1 mg/dL (8.5-10.1)
[2022-02-14 17:18] LABS: ALBUMIN 3.7 g/dl (3.4-5.0); MAGNESIUM 2.3 mg/dL (1.8-2.4)
[2022-02-14 17:21] LABS: CREATININE 0.7 mg/dL (0.55-1.3); PHOSPHOROUS 3.5 mg/dL (2.5-4.9)
[2022-02-14 17:22] LABS: BILIRUBIN,TOTAL 0.5 mg/dL (0.2-1); TOT PROT 6.9 g/dl (6.4-8.2)
== END 2022-02-14 17:55 | disposition home or self-care (01) ==
LOC: JER 15:47
DX: R20.2 Paresthesia of skin (principal)
CPT/HCPCS: 36415; 80053; 83735; 84100; 85025; 93005; 93010; 99284-25